=== PATIENT | male | born 1960 | race African-American/Black ===

== ENCOUNTER 2023-12-02 15:56 | Emergency (ER) | payer MEDICARE, MEDICAID ==
[~2023-12-02] VITALS: Ht 172.7 cm; Wt 70.0 kg
[~2023-12-02 15:56] MED LIST: AMLO10TA4 MT; ASPI-1160 PO; ATOR40TA70 MT; CLON0.2T MT; CLOP-31 MT; FAMO20TA8 PO; HYDR100T26 PO
[2023-12-02 16:06] VITALS: BP 166/78; PULSE 67; RESP 18; TEMP 98.2; O2SAT 98
[2023-12-02 16:44] LABS: BASOPHILS % 0.7 % (0.0-2.0); EOSINOPHILS % 3.4 % (0.0-5.0); HEMOGLOBIN. 8.5 g/dL (14.0-18.0); LYMPHOCYTES % 21.3 % (20.0-50.0); MEAN CORPUSCULAR HEMOGLOBIN 30.9 pg (28.0-32.0); MEAN CORPUSCULAR HGB CONC 33.8 g/dL (31.0-37.0); MEAN CORPUSCULAR VOLUME 91.3 fL (80.0-94.0); MONOCYTES % 12.4 % (2.0-8.0); NEUTROPHILS % 62.2 % (40.0-76.0); PLATELET 181 x1000/uL (130-400); RED BLOOD CELL COUNT 2.74 mill/uL (4.7-6.1); RED CELL DISTRIBUTION WIDTH 15.2 % (11.6-14.6); WHITE BLOOD COUNT 4.5 x1000/uL (4.5-11.0)
[2023-12-02 16:48] LABS: POTASSIUM 2.9 mEq/L (3.5-5.1)
[2023-12-02 16:49] LABS: CALCIUM 8.2 mg/dL (8.7-10.4)
[2023-12-02 16:56] LABS: CREATININE 5.6 mg/dL (0.6-1.3)
[2023-12-02] MEDS ORDERED: POTASSIUM CHLORIDE 20MEQ TABLET SR PO NR (18:30)
== END 2023-12-02 18:37 | disposition home or self-care (01) ==
LOC: ER 15:56
DX: E87.6 Hypokalemia (principal); I12.0 Hypertensive chronic kidney disease with stage 5 chronic kidney disease or end stage renal disease; N18.6 End stage renal disease; Z88.8 Allergy status to other drugs, medicaments and biological substances; Z79.899 Other long term (current) drug therapy; Z98.890 Other specified postprocedural states; Z90.49 Acquired absence of other specified parts of digestive tract
CPT/HCPCS: 36415; 71045; 80048; 85025; 93005; 99285

== ENCOUNTER 2024-04-04 15:57 | Inpatient (IN) | payer MEDICARE, OTHER ==
[~2024-04-04] VITALS: Ht 170.2 cm; Wt 37163.0 kg
[~2024-04-04 15:57] MED LIST changes: -AMLO10TA4 MT; +AMLO10TA80 PO; -ATOR40TA70 MT; +CALC667C PO; -CLON0.2T MT; +CLON0.3T PO; +DILT120C88 PO; +FERR325T6 PO; +HYDR100T11 PO; -HYDR100T26 PO; +IPRA3AMP9 HHN; +IPRA3AMP9 NEB; +ISOS30TA11 PO; +LIP40 PO; +TOPUD PO
[2024-04-04 16:07] VITALS: O2SAT 97
[2024-04-04] MEDS: ONDANSETRON HCL 4MG/2ML INJ IV ONE ×2 (16:52→17:30)
[2024-04-04 18:41] LABS: BASOPHILS % 0.5 % (0.0-2.0); EOSINOPHILS % 0.7 % (0.0-5.0); HEMATOCRIT. 28.2 % (42.0-52.0); HEMOGLOBIN. 9.4 g/dL (14.0-18.0); LYMPHOCYTES % 9.3 % (20.0-50.0); MEAN CORPUSCULAR HGB CONC 33.4 g/dL (31.0-37.0); MEAN CORPUSCULAR VOLUME 83.9 fL (80.0-94.0); MEAN PLATELET VOLUME 7.4 fl (7.4-10.4); MONOCYTES % 7.8 % (2.0-8.0); NEUTROPHILS % 81.7 % (40.0-76.0); PLATELET 214 x1000/uL (130-400); RED BLOOD CELL COUNT 3.37 mill/uL (4.7-6.1); RED CELL DISTRIBUTION WIDTH 19.3 % (11.6-14.6); WHITE BLOOD COUNT 10.7 x1000/uL (4.5-11.0)
[2024-04-04 18:48] LABS: CARBON DIOXIDE 26 mEq/L (21-32); CHLORIDE 104 mEq/L (98-107); POTASSIUM 4.6 mEq/L (3.5-5.1); SODIUM 140 mEq/L (136-145)
[2024-04-04 18:49] LABS: CALCIUM 9.2 mg/dL (8.7-10.4)
[2024-04-04 18:54] LABS: GLUCOSE 110 mg/dL (70-105); UREA NITROGEN BLOOD 100 mg/dL (9-23)
[2024-04-04 18:55] LABS: ALANINE AMINOTRANSFERASE 30 IU/L (10-49)
[2024-04-04 18:56] LABS: ASPARTATE AMINOTRANSFERASE 57 IU/L (<34); BILIRUBIN TOTAL 0.3 mg/dL (0.1-1.0); PROTEIN TOTAL 7.3 g/dL (6.0-8.3)
[2024-04-04 18:57] LABS: CREATININE 10.2 mg/dL (0.6-1.3)
[2024-04-04 18:58] LABS: TROPONIN I HIGH SENSITIVITY 480 ng/L (3.0-53)
[2024-04-04] MEDS ORDERED: GUAIFENESIN 200MG/10ML SUGAR FREE UDC PO PRN (19:00)
[2024-04-04] MEDS ORDERED: DOCUSATE SODIUM 100MG CAPSULE PO PRN (19:00)
[2024-04-04] MEDS ORDERED: IPRATROPIUM/ALBUTEROL 0.5-3(2.5)MG/3ML NEB HHN PRN (19:00)
[2024-04-04] MEDS ORDERED: ACETAMINOPHEN 325MG TABLET PO PRN (19:00)
[2024-04-04] MEDS ORDERED: ASPI-1406 PO (19:54)
[2024-04-04] MEDS ORDERED: CLOP75TA33 PO (19:54)
[2024-04-04] MEDS ORDERED: MINO10TA2 PO (19:54)
[2024-04-04] MEDS ORDERED: HYDR50TA39 PO (19:54)
[2024-04-04] MEDS: HYDROCODONE/ACETAMINOPHEN 7.5/325MG TABLET PO PRN (19:57)
[2024-04-04] MEDS: CLONIDINE 0.1MG TABLET PO PRN (19:58)
[2024-04-04] MEDS: LABETALOL 5MG/ML 4ML INJ IV NR (20:20)
[2024-04-04] MEDS: FUROSEMIDE 40MG/4ML VIAL IVP NR (20:25)
[2024-04-04 21:53] LABS: BG BASE EXCESS 0.1 mmol/L (-2.0-3.0); BG CARBOXYHEMOGLOBIN 0.3 % (0.5-1.5); BG DEOXYHEMOGLOBIN 6.9 % (0.0-5.0); BG FRACTION INSPIRED OXYGEN 21; BG HCO3 ACT 23.6 mmol/L (21.0-28.0); BG METHEMOGLOBIN 0.3 % (0.5-1.5); BG OXYGEN SATURATION 93.1 % (94.0-98.0); BG OXYHEMOGLOBIN 92.5 % (94.0-98.0); BG PH 7.459 (7.350-7.450); BG PO2 66.3 mmHg (83.0-108.0); BG SAMPLE SITE RIGHT RADIAL; BG TOTAL HEMOGLOBIN 10.8 g/dL (13.5-17.5); BG VENT MODE ROOM AIR
[2024-04-04] MEDS ORDERED: HYDRALAZINE HCL 100MG TABLET PO SCH (22:00)
[2024-04-04] MEDS: HYDRALAZINE HCL 50MG TABLET PO SCH (22:09)
[2024-04-04] MEDS: AMLODIPINE 10MG TABLET PO SCH (22:14)
[2024-04-04] MEDS: ATORVASTATIN CALCIUM 40MG TABLET PO SCH (22:16)
[2024-04-04] MEDS: MINOXIDIL 10MG TABLET PO SCH (23:34)
[2024-04-04 23:39] VITALS: BP 198/98; PULSE 98; RESP 19; TEMP 37.05852; TEMP 37.0852; O2SAT 99
[2024-04-05] VITALS (14 sets, daily range): BP systolic 136–197; BP diastolic 75–98; PULSE 57–98; RESP 17–20; TEMP 36.28068–37.11408; O2SAT 96–100
[2024-04-05 02:50] LABS: CLARITY URINE CLEAR (CLEAR); COLOR URINE YELLOW (YELLOW); GLUCOSE URINE NEGATIVE (NEGATIVE); KETONES URINE NEGATIVE (NEGATIVE); LEUKOCYTE ESTERASE URINE NEGATIVE (NEGATIVE); NITRITE URINE NEGATIVE (NEGATIVE); OCCULT BLOOD URINE TRACE (NEGATIVE); PH URINE 7.5 (4.5-8.0); PROTEIN URINE 3+ (NEGATIVE); SPECIFIC GRAVITY URINE 1.015 (1.005-1.030); UROBILINOGEN URINE 0.2 E.U./dL (0.2-1.0)
[2024-04-05 03:01] LABS: *AMPHETAMINES SCREEN URINE NEGATIVE (NEGATIVE); *BENZODIAZEPINES SCREEN URINE NEGATIVE (NEGATIVE)
[2024-04-05 03:02] LABS: *BARBITURATES SCREEN URINE NEGATIVE (NEGATIVE); *COCAINE SCREEN URINE PRESUMPTIVE POSITIVE (NEGATIVE); CANNABINOID URINE SCREEN NEGATIVE (NEGATIVE); ECSTASY MDMA SCREEN URINE NEGATIVE (NEGATIVE); METHADONE URINE SCREEN NEGATIVE (NEGATIVE); OPIATES URINE SCREEN PRESUMPTIVE POSITIVE (NEGATIVE); PHENCYCLIDINE URINE SCREEN NEGATIVE (NEGATIVE)
[2024-04-05 03:44] LABS: SQUAMOUS EPITHELIAL CELL URINE FEW /lpf (RARE/1+)
[2024-04-05 03:47] LABS: RBC URINE 0-2 /hpf (0-2)
[2024-04-05 03:48] LABS: BACTERIA URINE NONE SEEN
[2024-04-05] MEDS: PANTOPRAZOLE 40MG DR TABLET PO SCH (07:02)
[2024-04-05] MEDS: ENOXAPARIN 30MG/0.3ML SYR SUBCUT SCH (09:00)
[2024-04-05] MEDS: ONDANSETRON HCL 4MG/2ML INJ IV PRN (09:41)
[2024-04-05] MEDS: ASPIRIN 81MG EC TABLET PO SCH (09:42)
[2024-04-05] MEDS: CLOPIDOGREL 75MG TABLET PO SCH (09:43)
[2024-04-05] MEDS ORDERED: LIDOCAINE HCL 1% 10 MG/ML 10ML VIAL ONE (10:03)
[2024-04-05] MEDS: ISOSORBIDE DINITRATE 30MG TABLET PO SCH (11:15)
[2024-04-05 13:27] LABS: BASOPHILS % 0.2 % (0.0-2.0); EOSINOPHILS % 0.8 % (0.0-5.0); HEMATOCRIT. 27.9 % (42.0-52.0); HEMOGLOBIN. 9.2 g/dL (14.0-18.0); LYMPHOCYTES % 7.5 % (20.0-50.0); MEAN CORPUSCULAR HEMOGLOBIN 27.9 pg (28.0-32.0); MEAN CORPUSCULAR HGB CONC 33.1 g/dL (31.0-37.0); MEAN CORPUSCULAR VOLUME 84.3 fL (80.0-94.0); MEAN PLATELET VOLUME 7.6 fl (7.4-10.4); MONOCYTES % 6.5 % (2.0-8.0); PLATELET 219 x1000/uL (130-400); RED CELL DISTRIBUTION WIDTH 19.5 % (11.6-14.6)
[2024-04-05 13:40] LABS: INR 1.1; PROTHROMBIN TIME 11.7 sec (9.6-11.0)
[2024-04-05 13:57] LABS: CREATINE KINASE MB FRACTION 6.4 ng/mL (0.5-3.6)
[2024-04-05 14:11] LABS: HEPATITIS B SURFACE ANTIGEN NEGATIVE (Negative)
[2024-04-05 14:32] LABS: HEPATITIS A AB IGM NEGATIVE (Negative)
[2024-04-05 14:33] LABS: HEPATITIS B CORE AB IGM NEGATIVE (Negative); HEPATITIS C AB REACTIVE (Pos) (Negative)
[2024-04-05 17:29] LABS: POTASSIUM 3.8 mEq/L (3.5-5.1)
[2024-04-05 17:31] LABS: CALCIUM 9.2 mg/dL (8.7-10.4)
[2024-04-05 17:36] LABS: CREATINE KINASE MB FRACTION 5.3 ng/mL (0.5-3.6)
[2024-04-05 17:41] LABS: CREATININE 6.4 mg/dL (0.6-1.3)
[2024-04-05] MEDS ORDERED: NALOXONE HCL 0.4MG/ML VIAL IV PRN (18:00)
[2024-04-06 00:45] LABS: TROPONIN I HIGH SENSITIVITY 422 ng/L (3.0-53)
[2024-04-06 04:00] VITALS: BP 189/109; PULSE 86; RESP 15; TEMP 36.6696; O2SAT 99
[2024-04-06 08:00] VITALS: BP 193/108; PULSE 86; RESP 18; TEMP 36.22512; O2SAT 96
[2024-04-06 11:07] LABS: BASOPHILS % 0.8 % (0.0-2.0); EOSINOPHILS % 3.5 % (0.0-5.0); HEMATOCRIT. 26.9 % (42.0-52.0); HEMOGLOBIN. 8.8 g/dL (14.0-18.0); LYMPHOCYTES % 14.7 % (20.0-50.0); MEAN CORPUSCULAR HGB CONC 32.9 g/dL (31.0-37.0); MEAN PLATELET VOLUME 7.8 fl (7.4-10.4); MONOCYTES % 13.7 % (2.0-8.0); NEUTROPHILS % 67.3 % (40.0-76.0); PLATELET 202 x1000/uL (130-400); RED BLOOD CELL COUNT 3.16 mill/uL (4.7-6.1); RED CELL DISTRIBUTION WIDTH 19.3 % (11.6-14.6); WHITE BLOOD COUNT 6.4 x1000/uL (4.5-11.0)
[2024-04-06 11:09] LABS: POTASSIUM 4.6 mEq/L (3.5-5.1)
[2024-04-06 11:10] LABS: CALCIUM 8.5 mg/dL (8.7-10.4)
[2024-04-06 11:22] LABS: TROPONIN I HIGH SENSITIVITY 385 ng/L (3.0-53)
[2024-04-06 12:00] VITALS: BP 182/95; PULSE 90; RESP 18; TEMP 36.55848; O2SAT 96
[2024-04-06 12:14] LABS: CREATININE 7.9 mg/dL (0.6-1.3)
[2024-04-06] MEDS: CLONIDINE 0.1MG TABLET PO SCH (13:30)
[2024-04-06 16:00] VITALS: BP 151/83; PULSE 79; RESP 18; TEMP 36.16956; O2SAT 94
[2024-04-06] MEDS ORDERED: HYDRALAZINE 20MG/ML VIAL IV PRN (16:45)
[2024-04-06] MEDS ORDERED: HYDRALAZINE HCL 50MG TABLET PO SCH (17:00)
[2024-04-06] MEDS ORDERED: LABETALOL 5MG/ML 4ML INJ IV PRN (17:00)
[2024-04-06] MEDS: NIFEDIPINE XL 60MG TAB PO SCH (17:57)
[2024-04-06 20:00] VITALS: BP 141/72; PULSE 82; RESP 19; TEMP 37.33632; O2SAT 97
[2024-04-06] MEDS: LABETALOL HCL 100MG TABLET PO SCH (22:23)
[2024-04-06 23:23] LABS: TROPONIN I HIGH SENSITIVITY 332 ng/L (3.0-53)
[2024-04-07] VITALS (14 sets, daily range): BP systolic 113–139; BP diastolic 59–74; PULSE 55–80; RESP 15–20; TEMP 36.16956–36.83628; O2SAT 96–100
[2024-04-07 06:41] LABS: CHLORIDE 100 mEq/L (98-107); POTASSIUM 4.8 mEq/L (3.5-5.1); SODIUM 136 mEq/L (136-145)
[2024-04-07 06:42] LABS: CARBON DIOXIDE 25 mEq/L (21-32)
[2024-04-07 06:43] LABS: CALCIUM 8.6 mg/dL (8.7-10.4); HEMATOCRIT. 25.7 % (42.0-52.0); HEMOGLOBIN. 8.6 g/dL (14.0-18.0); MEAN CORPUSCULAR HEMOGLOBIN 28.2 pg (28.0-32.0); MEAN CORPUSCULAR HGB CONC 33.6 g/dL (31.0-37.0); MEAN CORPUSCULAR VOLUME 83.8 fL (80.0-94.0); PLATELET 173 x1000/uL (130-400); RED BLOOD CELL COUNT 3.06 mill/uL (4.7-6.1); RED CELL DISTRIBUTION WIDTH 19.1 % (11.6-14.6); WHITE BLOOD COUNT 4.8 x1000/uL (4.5-11.0)
[2024-04-07 06:45] LABS: DIFFERENTIAL COMMENT 1
[2024-04-07 06:47] LABS: GLUCOSE 82 mg/dL (70-105)
[2024-04-07 06:48] LABS: CREATINE KINASE 216 IU/L (46-171); UREA NITROGEN BLOOD 67 mg/dL (9-23)
[2024-04-07 06:50] LABS: PHOSPHORUS 4.9 mg/dL (2.5-4.9)
[2024-04-07 07:16] LABS: CREATININE 7.8 mg/dL (0.6-1.3)
[2024-04-07 08:32] LABS: TROPONIN I HIGH SENSITIVITY 319 ng/L (3.0-53)
[2024-04-07] MEDS: FAMOTIDINE 20MG TABLET PO SCH (09:00)
[2024-04-07 15:55] LABS: PLATELET ESTIMATE NORMAL
[2024-04-08] VITALS: BP 123/60; PULSE 64; RESP 20; TEMP 36.16956; O2SAT 97
[2024-04-08] MEDS: ACETAMINOPHEN 325MG TABLET PO PRN (00:04)
[2024-04-08 04:00] VITALS: BP 141/72; PULSE 66; RESP 20; TEMP 36.33624; O2SAT 98
[2024-04-08 06:15] LABS: HEMATOCRIT. 26.5 % (42.0-52.0); HEMOGLOBIN. 8.8 g/dL (14.0-18.0); MEAN CORPUSCULAR HEMOGLOBIN 28.1 pg (28.0-32.0); MEAN CORPUSCULAR HGB CONC 33.3 g/dL (31.0-37.0); MEAN CORPUSCULAR VOLUME 84.2 fL (80.0-94.0); MEAN PLATELET VOLUME 8.1 fl (7.4-10.4); PLATELET 177 x1000/uL (130-400); RED BLOOD CELL COUNT 3.15 mill/uL (4.7-6.1); RED CELL DISTRIBUTION WIDTH 19.3 % (11.6-14.6); WHITE BLOOD COUNT 4.8 x1000/uL (4.5-11.0)
[2024-04-08 06:17] LABS: DIFFERENTIAL COMMENT 1
[2024-04-08 06:27] LABS: POTASSIUM 4.9 mEq/L (3.5-5.1)
[2024-04-08 06:28] LABS: CALCIUM 8.6 mg/dL (8.7-10.4)
[2024-04-08 06:35] LABS: CREATININE 6.6 mg/dL (0.6-1.3)
[2024-04-08 08:00] VITALS: BP 167/93; PULSE 68; RESP 20; TEMP 36.6696; O2SAT 99
[2024-04-08 10:19] LABS: PROTHROMBIN TIME 11.1 sec (9.6-11.0)
[2024-04-08 15:29] LABS: PLATELET ESTIMATE NORMAL
[2024-04-08 16:00] VITALS: BP 111/38; PULSE 78; RESP 18; TEMP 36.55848; O2SAT 98
[2024-04-08 20:00] VITALS: BP 146/74; PULSE 71; RESP 18; TEMP 36.89184; O2SAT 96
[2024-04-08] MEDS: CLONIDINE 0.3MG TABLET PO SCH (21:47)
[2024-04-09] VITALS (16 sets, daily range): BP systolic 105–144; BP diastolic 60–79; PULSE 60–68; RESP 16–20; TEMP 36.33624–36.78072; O2SAT 96–99
[2024-04-09 06:17] LABS: CALCIUM 8.7 mg/dL (8.7-10.4); CHLORIDE 101 mEq/L (98-107); POTASSIUM 4.6 mEq/L (3.5-5.1); SODIUM 137 mEq/L (136-145)
[2024-04-09 06:18] LABS: CARBON DIOXIDE 27 mEq/L (21-32)
[2024-04-09 06:23] LABS: GLUCOSE 99 mg/dL (70-105); UREA NITROGEN BLOOD 69 mg/dL (9-23)
[2024-04-09 06:25] LABS: PHOSPHORUS 4.7 mg/dL (2.5-4.9)
[2024-04-09 06:29] LABS: HEMATOCRIT. 25.1 % (42.0-52.0); HEMOGLOBIN. 8.4 g/dL (14.0-18.0); MEAN CORPUSCULAR HEMOGLOBIN 28.3 pg (28.0-32.0); MEAN CORPUSCULAR HGB CONC 33.5 g/dL (31.0-37.0); MEAN CORPUSCULAR VOLUME 84.6 fL (80.0-94.0); MEAN PLATELET VOLUME 8.3 fl (7.4-10.4); PLATELET 160 x1000/uL (130-400); RED BLOOD CELL COUNT 2.97 mill/uL (4.7-6.1); WHITE BLOOD COUNT 4.5 x1000/uL (4.5-11.0)
[2024-04-09 07:14] LABS: CREATININE 7.8 mg/dL (0.6-1.3)
[2024-04-09 07:23] LABS: DIFFERENTIAL COMMENT 1
[2024-04-09 22:17] LABS: ANISOCYTOSIS 1+; PLATELET ESTIMATE NORMAL
[2024-04-10] VITALS (19 sets, daily range): BP systolic 116–165; BP diastolic 54–87; PULSE 57–67; RESP 12–19; TEMP 36.3918–36.78072; O2SAT 96–100
[2024-04-10] MEDS ORDERED: ALTEPLASE 2MG/VIAL ITC NR (11:45)
[2024-04-10] MEDS: CEFAZOLIN 1000MG PREMIX 50 ML IV NR (12:25)
[2024-04-10] MEDS ORDERED: FENTANYL CITRATE/PF 50MCG/ML 2ML VIAL ONE (12:28)
[2024-04-10] MEDS: FENTANYL CITRATE/PF 50MCG/ML 2ML VIAL IV NR (12:30)
[2024-04-10 16:32] LABS: BASOPHILS % 0.4 % (0.0-2.0); EOSINOPHILS % 3.3 % (0.0-5.0); HEMATOCRIT. 26.7 % (42.0-52.0); HEMOGLOBIN. 8.8 g/dL (14.0-18.0); LYMPHOCYTES % 14.5 % (20.0-50.0); MEAN CORPUSCULAR HGB CONC 33.1 g/dL (31.0-37.0); MEAN CORPUSCULAR VOLUME 84.7 fL (80.0-94.0); MEAN PLATELET VOLUME 8.1 fl (7.4-10.4); MONOCYTES % 13.1 % (2.0-8.0); NEUTROPHILS % 68.7 % (40.0-76.0); PLATELET 192 x1000/uL (130-400); RED BLOOD CELL COUNT 3.15 mill/uL (4.7-6.1); RED CELL DISTRIBUTION WIDTH 19.3 % (11.6-14.6); WHITE BLOOD COUNT 5.8 x1000/uL (4.5-11.0)
[2024-04-10 16:40] LABS: CALCIUM 8.8 mg/dL (8.7-10.4); POTASSIUM 4.7 mEq/L (3.5-5.1)
[2024-04-10 16:50] LABS: CREATININE 6.7 mg/dL (0.6-1.3)
[2024-04-11] VITALS (12 sets, daily range): BP systolic 129–152; BP diastolic 61–88; PULSE 62–80; RESP 18–20; TEMP 36.44736–36.9474; O2SAT 97–100
[2024-04-11] MEDS: IBUPROFEN 600MG TABLET PO NR (01:16)
[2024-04-11 07:23] LABS: POTASSIUM 4.8 mEq/L (3.5-5.1)
[2024-04-11 07:24] LABS: CALCIUM 8.6 mg/dL (8.7-10.4)
[2024-04-11 07:29] LABS: CREATININE 7.1 mg/dL (0.6-1.3)
[2024-04-11 07:30] LABS: HEMATOCRIT. 25.2 % (42.0-52.0); HEMOGLOBIN. 8.6 g/dL (14.0-18.0); MEAN CORPUSCULAR HEMOGLOBIN 28.8 pg (28.0-32.0); MEAN CORPUSCULAR HGB CONC 34.1 g/dL (31.0-37.0); MEAN CORPUSCULAR VOLUME 84.4 fL (80.0-94.0); MEAN PLATELET VOLUME 8.3 fl (7.4-10.4); PLATELET 172 x1000/uL (130-400); RED BLOOD CELL COUNT 2.98 mill/uL (4.7-6.1); RED CELL DISTRIBUTION WIDTH 19.2 % (11.6-14.6); WHITE BLOOD COUNT 5.3 x1000/uL (4.5-11.0)
[2024-04-11 08:05] LABS: DIFFERENTIAL COMMENT 1
[2024-04-11 16:08] LABS: MICROCYTOSIS 1+; PLATELET ESTIMATE NORMAL
== END 2024-04-11 18:15 | disposition home or self-care (01) | DRG 278 ==
LOC: ER 16:17 → 5WST 17:36 → EDBEDREQTM 17:40 → EDBEDREQ 17:40 → EDBEDREQSVC 17:40 → 7EST 04-05 08:37
PROVIDERS: ADMIT Internal Medicine; ATTEND Internal Medicine
PROC: 5A1D70Z Performance of Urinary Filtration, Intermittent, Less than 6 Hours Per Day (ICD-10-PCS; 2024-04-05)
PROC: 0JH63XZ Insertion of Tunneled Vascular Access Device into Chest Subcutaneous Tissue and Fascia, Percutaneous Approach (ICD-10-PCS; 2024-04-05)
PROC: 02HV33Z Insertion of Infusion Device into Superior Vena Cava, Percutaneous Approach (ICD-10-PCS; 2024-04-05)
PROC: B548ZZA Ultrasonography of Superior Vena Cava, Guidance (ICD-10-PCS; 2024-04-05)
PROC: 5A1D70Z Performance of Urinary Filtration, Intermittent, Less than 6 Hours Per Day (ICD-10-PCS; 2024-04-07)
PROC: 5A1D70Z Performance of Urinary Filtration, Intermittent, Less than 6 Hours Per Day (ICD-10-PCS; 2024-04-09)
PROC: 057Y3ZZ Dilation of Upper Vein, Percutaneous Approach (ICD-10-PCS; principal; 2024-04-10)
PROC: [UNRECOGNIZED PROCEDURE] (2024-04-10)
PROC: B51W1ZZ Fluoroscopy of Dialysis Shunt/Fistula using Low Osmolar Contrast (ICD-10-PCS; 2024-04-10)
PROC: B5181ZZ Fluoroscopy of Superior Vena Cava using Low Osmolar Contrast (ICD-10-PCS; 2024-04-10)
PROC: B3111ZZ Fluoroscopy of Right Brachiocephalic-Subclavian Artery using Low Osmolar Contrast (ICD-10-PCS; 2024-04-10)
PROC: 3E05317 Introduction of Other Thrombolytic into Peripheral Artery, Percutaneous Approach (ICD-10-PCS; 2024-04-10)
PROC: 5A1D70Z Performance of Urinary Filtration, Intermittent, Less than 6 Hours Per Day (ICD-10-PCS; 2024-04-11)
DX: T82.868A Thrombosis due to vascular prosthetic devices, implants and grafts, initial encounter (principal); I21.A1 Myocardial infarction type 2; J96.01 Acute respiratory failure with hypoxia; N18.6 End stage renal disease; I16.1 Hypertensive emergency; I50.30 Unspecified diastolic (congestive) heart failure; I13.2 Hypertensive heart and chronic kidney disease with heart failure and with stage 5 chronic kidney disease, or end stage renal disease; E87.70 Fluid overload, unspecified; B19.20 Unspecified viral hepatitis C without hepatic coma; D50.9 Iron deficiency anemia, unspecified; D63.1 Anemia in chronic kidney disease; I1A.0 Resistant hypertension; J44.9 Chronic obstructive pulmonary disease, unspecified; E78.5 Hyperlipidemia, unspecified; F14.10 Cocaine abuse, uncomplicated; K59.00 Constipation, unspecified; Y83.2 Surgical operation with anastomosis, bypass or graft as the cause of abnormal reaction of the patient, or of later complication, without mention of misadventure at the time of the procedure; Z79.02 Long term (current) use of antithrombotics/antiplatelets; Z79.82 Long term (current) use of aspirin; Z79.899 Other long term (current) drug therapy; Z91.148 Patient's other noncompliance with medication regimen for other reason; Z99.2 Dependence on renal dialysis; Z88.8 Allergy status to other drugs, medicaments and biological substances
CPT/HCPCS: 36415; 36556; 36600; 36905; 71045; 77001; 80048; 80053; 80305; 81003; 82375; 82550; 82553; 82805; 83735; 83880; 84100; 84484; 85025; 86705; 86709; 87340; 90935; 93005; 93970; 97166; 99152; 99153; 99285; C1725; C1752; C1766; C1769; C1887; J0690; J1650; J1940; J2405; J2997; J3010; J3490; G0500